=== PATIENT | male | born 1960 | race Caucasian/White ===

== ENCOUNTER → 2022-07-22 | Day surgery (SDC) | payer OTHER ==
[~2022-07-22] VITALS: Ht 182.9 cm; Wt 77.1 kg
[~2022-07-22] MED LIST: FRUIT PO; PROSTATE HEALTH PO; [UNRECOGNIZED DRUG - OTHER] PO
[2022-07-22 13:21] VITALS: BP 129/81
== END | disposition home or self-care (01) | DRG 951 ==
LOC: ENDO 09:05
PROVIDERS: ATTEND Surgery
PROC: 0DJD8ZZ Inspection of Lower Intestinal Tract, Via Natural or Artificial Opening Endoscopic (ICD-10-PCS; principal; 2022-07-22)
DX: Z12.11 Encounter for screening for malignant neoplasm of colon (principal); K57.30 Diverticulosis of large intestine without perforation or abscess without bleeding; K64.8 Other hemorrhoids